=== PATIENT | male | born 1970 | race Caucasian/White ===

== ENCOUNTER → 2016-09-19 | Outpatient (REF) | payer MEDICAID, OTHER ==
[2016-09-19 13:19] LABS: MEAN CORPUSCULAR HEMOGLOBIN 31.8 pg (27.0-33.0); MEAN CORPUSCULAR VOLUME 93.3 fl (80.0-96.0); RED CELL DISTRIBUTION WIDTH 13.5 % (11.5-14.5); WHITE BLOOD COUNT 9.6 K/mm3 (4.0-10.0)
[2016-09-19 13:23] LABS: ALBUMIN 3.7 GM/DL (3.2-5.2); ALKALINE PHOSPHATASE 84 U/L (45-117); ALT/SGPT 44 U/L (12-78); ANION GAP 10 MEQ/L (8-16); AST/SGOT 22 U/L (15-37); BILIRUBIN,TOTAL 0.8 MG/DL (0.2-1.0); BLOOD UREA NITROGEN 11 MG/DL (7-18); CALCIUM LEVEL 9.1 MG/DL (8.5-10.1); CARBON DIOXIDE LEVEL 25 MEQ/L (21-32); CHLORIDE LEVEL 103 MEQ/L (98-107); CREATININE FOR GFR 0.92 MG/DL (0.70-1.30); GLOMERULAR FILTRATION RATE > 60.0 (>60); GLUCOSE, FASTING 286 MG/DL (70-105); POTASSIUM SERUM 4.5 MEQ/L (3.5-5.1); SODIUM LEVEL 138 MEQ/L (136-145); TOTAL PROTEIN 7.4 GM/DL (6.4-8.2)
== END ==
LOC: M LABDRAW1 11:34
PROVIDERS: ATTEND Family Medicine
DX: I10 Essential (primary) hypertension (principal); E11.9 Type 2 diabetes mellitus without complications; R53.83 Other fatigue

== ENCOUNTER → 2016-10-23 | Outpatient (CLI) | payer OTHER ==
--- NOTE | 2016-10-24 05:30 | REP ---
Clinical: Vasovagal episode. Technique: Vale scale and color Doppler evaluation using linear high frequency transducer Findings: Two-dimensional vale scale and color images demonstrate minimal noncalcified intimal thickening with normal arterial lumen, laminar flow and no appreciable narrowing. Color Doppler interrogation demonstrates normal arterial wave patterns and velocities with no significant spectral broadening. Normal flow direction is appreciated in the bilateral vertebral arteries. RIGHT (cm/s) LEFT (cm/s) ICA peak systolic velocity 45.7 41.7 ICA diastolic velocity 17.4 13.1 ECA peak systolic velocity 84.5 82.9 CCA peak systolic velocity 109.9 114.0 ICA/CCA ratio 0.42 0.37 Impression: No hemodynamically significant areas of narrowing or stenosis appreciated. Based on set standards narrowing falls within the normal/less than 50% range. Signed by Lars Patel MD 10/24/2016 05:22 A
== END ==
LOC: M RAD 13:05
PROVIDERS: ATTEND Physician Assistant
DX: R55 Syncope and collapse (principal)

== ENCOUNTER → 2017-04-17 | Outpatient (REF) | payer OTHER, SELFPAY ==
[2017-04-17 15:00] LABS: ESTIMATED AVERAGE GLUCOSE 157 MG/DL (60-110); HEMOGLOBIN A1c 7.1 %
== END ==
LOC: M LABDRAW1 11:15
DX: E11.9 Type 2 diabetes mellitus without complications (principal)
CPT/HCPCS: 83036

== ENCOUNTER 2017-07-16 07:28 | Day surgery (SDC) | payer OTHER ==
[2017-07-16] MEDS ORDERED: PROPOFOL 500 MG/50 ML VIAL As Ordered (07:49)
[2017-07-16] MEDS: NS 1,000 ML IV (08:26)
[2017-07-16] MEDS ORDERED: PROPOFOL 200 MG/20 ML VIAL As Ordered (09:15)
== END 2017-07-16 09:57 | disposition home or self-care (01) ==
LOC: M OPP 07:28
DX: Z87.19 Personal history of other diseases of the digestive system (principal); K64.8 Other hemorrhoids; D12.3 Benign neoplasm of transverse colon; K63.5 Polyp of colon; K57.30 Diverticulosis of large intestine without perforation or abscess without bleeding; E11.9 Type 2 diabetes mellitus without complications; J45.909 Unspecified asthma, uncomplicated; F17.210 Nicotine dependence, cigarettes, uncomplicated; Z79.899 Other long term (current) drug therapy; Z88.8 Allergy status to other drugs, medicaments and biological substances; Z08 Encounter for follow-up examination after completed treatment for malignant neoplasm
CPT/HCPCS: 45380

== ENCOUNTER → 2021-11-08 | Outpatient (REF) | payer OTHER ==
[~2021-11-08] MED LIST: CIPR-249 PO; DULE100A; FISH1000 PO; SYMB80INH INH; VENTAER; [UNRECOGNIZED DRUG - REMARK] PO
[2021-11-08 21:44] LABS: MALB URINE SIEMENS 93.9 MG/L; MAU/CREAT RATIO 61.7 MCG/MG (0.0-30.0)
== END ==
LOC: M LAB REF 16:56
PROVIDERS: ATTEND Nurse Practitioner Family
DX: E11.65 Type 2 diabetes mellitus with hyperglycemia (principal)

== ENCOUNTER → 2022-03-09 | Outpatient (CLI) | payer OTHER | LOC: M CARPUL 09:00 | PROVIDERS: ATTEND Internal Medicine Pulmonary Disease | DX: R91.8 Other nonspecific abnormal finding of lung field (principal) ==

== ENCOUNTER → 2023-07-05 | Outpatient (CLI) | payer OTHER ==
[~2023-07-05] MED LIST changes: -DULE100A; +METHACHOLINE KIT (6 VIAL.NEB PREMIX) INH ONE; +MOME13HF8
== END ==
LOC: M CARPUL 12:49
PROVIDERS: ATTEND Internal Medicine Pulmonary Disease
DX: R06.02 Shortness of breath (principal)
CPT/HCPCS: 88738; 94010; 94070; 94726; 94729; 95070; J7674

== ENCOUNTER → 2023-07-12 | Outpatient (CLI) | payer OTHER ==
[~2023-07-12] MED LIST changes: -METHACHOLINE KIT (6 VIAL.NEB PREMIX) INH ONE
[2023-07-12 11:03] LABS: HEMATOCRIT 45.5 % (42.0-52.0); MEAN CORPUSCULAR HEMOGLOBIN 32.3 pg (27.0-33.0); MEAN CORPUSCULAR HGB CONC 35.2 g/dl (32.0-36.5); MEAN CORPUSCULAR VOLUME 91.7 fl (80.0-96.0); PLATELET COUNT, AUTOMATED 249 10^3/uL (150-450); RED BLOOD COUNT 4.96 10^6/uL (4.30-6.10)
[2023-07-12 11:13] LABS: HEMOGLOBIN A1c 8.7 % (4.0-6.0)
[2023-07-12 11:27] LABS: PROSTATIC SPECIFIC AG MONITOR 0.12 NG/ML (< 4.00)
[2023-07-12 11:30] LABS: THYROID STIMULATING HORMONE 1.857 uIU/ML (0.55-4.78)
[2023-07-12 11:31] LABS: TESTOSTERONE 117 NG/DL (241-827); TOTAL 25(OH) VITAMIN D 35.4 NG/ML (20.0-100.0)
[2023-07-12 11:35] LABS: ALKALINE PHOSPHATASE 77 U/L (46-116); ALT/SGPT 33 U/L (7.0-40); AST/SGOT 18 U/L (<34); BILIRUBIN,TOTAL 0.5 MG/DL (0.3-1.2); BLOOD UREA NITROGEN 15 MG/DL (9-23); CALCIUM LEVEL 9.6 MG/DL (8.5-10.1); CARBON DIOXIDE LEVEL 27 MMOL/L (20-31); CHLORIDE LEVEL 104 MMOL/L (98-107); CHOLESTEROL LEVEL 165 MG/DL (<200); CHOLESTEROL RISK RATIO 3.79 (<5); CREATININE FOR GFR 0.64 MG/DL (0.70-1.30); GLOMERULAR FILTRATION RATE > 60.0 (>56); GLUCOSE, FASTING 219 MG/DL (60-100); HDL CHOLESTEROL 43.5 MG/DL (>40); LDL CHOLESTEROL 84.7 MG/DL (<100); NON-HDL-C 121.5 MG/DL; POTASSIUM SERUM 4.6 MMOL/L (3.5-5.1); SODIUM LEVEL 140 MMOL/L (136-145); TRIGLYCERIDES LEVEL 184 MG/DL (<150)
== END ==
LOC: M LAB 09:22
PROVIDERS: ATTEND Family Medicine
DX: I10 Essential (primary) hypertension (principal); R53.83 Other fatigue; E03.9 Hypothyroidism, unspecified

== ENCOUNTER → 2023-08-01 | Outpatient (CLI) | payer OTHER | LOC: M PLALAB 14:51 | PROVIDERS: ATTEND Family Medicine | DX: D29.1 Benign neoplasm of prostate (principal) ==

== ENCOUNTER → 2024-04-10 | Outpatient (CLI) | payer OTHER ==
[2024-04-10 17:58] LABS: HEMATOCRIT 46.8 % (42.0-52.0); HEMOGLOBIN 16.3 g/dl (13.5-17.5); MEAN CORPUSCULAR HEMOGLOBIN 31.4 pg (27.0-33.0); MEAN CORPUSCULAR HGB CONC 34.8 g/dl (32.0-36.5); MEAN CORPUSCULAR VOLUME 90.2 fl (80.0-96.0); PLATELET COUNT, AUTOMATED 272 10^3/uL (150-450); RED BLOOD COUNT 5.19 10^6/uL (4.30-6.10); WHITE BLOOD COUNT 9.8 10^3/uL (4.0-10.0)
[2024-04-10 18:33] LABS: PROSTATIC SPECIFIC AG MONITOR 0.11 NG/ML (< 4.00)
[2024-04-10 18:37] LABS: ALBUMIN 4.1 G/DL (3.2-5.2); ALKALINE PHOSPHATASE 67 U/L (40-129); ALT/SGPT 24 U/L (7.0-40); AST/SGOT 15 U/L (<34); BILIRUBIN,TOTAL 0.5 MG/DL (0.3-1.2); BLOOD UREA NITROGEN 13 MG/DL (9-23); CALCIUM LEVEL 9.6 MG/DL (8.5-10.1); CARBON DIOXIDE LEVEL 26 MMOL/L (20-31); CHLORIDE LEVEL 106 MMOL/L (98-107); CHOLESTEROL LEVEL 181 MG/DL (<200); CREATININE FOR GFR 0.79 MG/DL (0.70-1.30); GLOMERULAR FILTRATION RATE > 60.0 (>56); GLUCOSE, FASTING 152 MG/DL (60-100); HDL CHOLESTEROL 37.7 MG/DL (>40); LDL CHOLESTEROL 93.5 MG/DL (<100); NON-HDL-C 143.3 MG/DL; POTASSIUM SERUM 4.3 MMOL/L (3.5-5.1); SODIUM LEVEL 140 MMOL/L (136-145); THYROID STIMULATING HORMONE 2.518 uIU/ML (0.55-4.78); TOTAL PROTEIN 7.3 G/DL (5.7-8.2); TRIGLYCERIDES LEVEL 249 MG/DL (<150)
[2024-04-10 18:38] LABS: TESTOSTERONE 112 NG/DL (241-827)
[2024-04-10 18:40] LABS: HEMOGLOBIN A1c 10.7 % (4.0-6.0)
== END ==
LOC: M PLALAB 14:29
PROVIDERS: ATTEND Family Medicine
DX: I10 Essential (primary) hypertension (principal); R53.83 Other fatigue

== ENCOUNTER → 2024-07-08 | Outpatient (REF) | LOC: M PLAIMG 09:18 | PROVIDERS: ATTEND Internal Medicine | DX: M54.50 Low back pain, unspecified (principal) ==